=== PATIENT | male | born 1990 | race American Indian/Alaskan Native ===

== ENCOUNTER 2017-04-14 11:16 | Inpatient (IN) | payer OTHER ==
[2017-04-14 11:45] LABS: Hematocrit 44.7 % (35.5-45.6); Mean Corpuscular HGB Conc 34 % (32-34); Mean Corpuscular Hemoglobin 31 pg (28-32); Mean Corpuscular Volume 92 fl (84-94); Platelet Count 210 K/mm3 (140-440); Red Blood Count 4.85 M/mm3 (3.65-5.03); Red Cell Distribution Width 13.4 % (13.2-15.2); White Blood Count 8.2 K/mm3 (4.5-11.0)
[2017-04-14 12:11] LABS: Alanine Aminotransferase 18 units/L (7-56); Albumin 3.9 g/dL (3.9-5); Albumin/Globulin Ratio 0.8 %; Alkaline Phosphatase 42 units/L (35-129); Anion Gap 21 mmol/L; BUN/Creatinine Ratio 16; Blood Urea Nitrogen 19 mg/dL (9-20); Calcium 9.4 mg/dL (8.4-10.2); Carbon Dioxide 26 mmol/L (22-30); Chloride 93.3 mmol/L (98-107); Glucose 140 mg/dL (75-100); Lipase 19 units/L (13-60); Potassium 3.5 mmol/L (3.6-5.0); Sodium 137 mmol/L (137-145); Total Protein 8.7 g/dL (6.3-8.2)
[2017-04-14] MEDS ORDERED: NACL 0.9% 1000 ML 1,000 ML IV ONE ×2 (12:29→13:50)
[2017-04-14] MEDS ORDERED: ZOFRAN IV ONE (12:29)
[2017-04-14] MEDS ORDERED: MORPHINE IV ONE (12:30)
[2017-04-14 12:35] LABS: Basophils % (Manual) 0 % (0.0-1.8); Blastocytes % (Manual) 0 %; Eosinophils % (Manual) 0 % (0.0-4.3)
[2017-04-14] MEDS ORDERED: TYLENOL PO ONE ×2 (12:35→16:42)
--- NOTE | 2017-04-14 12:35 | Emergency Department Report ---
HPI - General Chief Complaint: Nausea/Vomiting/Diarrhea Time Seen by Provider: 04/14/17 12:22 - HPI HPI: This is a 26-year-old [place] male, with a past medical history of HIV, who presents to the emergency department with a 2-3 day history of nausea, vomiting and some periumbilical abdominal pain. He also complained of some feelings of chills but has not checked his temperature for a fever, but did present with a low-grade fever here. He tried some NyQuil for his symptoms without any relief. He has a primary care physician but cannot currently remember the name. No recent travel or sick contacts at home. He denies any dysuria, discharge, diarrhea, constipation. He says that his last CD4 count was about 1000. ED Past Medical Hx - Past Medical History Previous Medical History?: Yes Hx HIV: Yes (viral load 03/2017 960) - Surgical History Past Surgical History?: No - Social History Smoking Status: Never Smoker Substance Use Type: None ED Review of Systems ROS: Stated complaint: VOMITING Other details as noted in HPI Comment: All other systems reviewed and negative Constitutional: chills. denies: weakness Eyes: denies: eye pain, eye discharge, vision change ENT: denies: ear pain, throat pain Respiratory: denies: cough, shortness of breath, wheezing Cardiovascular: denies: chest pain, palpitations Gastrointestinal: abdominal pain, nausea, vomiting Genitourinary: denies: urgency, dysuria Musculoskeletal: denies: back pain, joint swelling, arthralgia Skin: denies: rash, lesions Neurological: denies: headache, weakness, paresthesias Physical Exam - Physical Exam Vital Signs: Vital Signs 04/14/17 04/14/17 11:23 12:10 Temperature 99.1 F 100.6 F H Pulse Rate 122 H 144 H Respiratory 16 24 Rate Blood Pressure 139/88 Blood Pressure 109/66 [Left] O2 Sat by Pulse 100 Oximetry Physical Exam: GENERAL: The patient is well-developed well-nourished. HENT: Normocephalic. Atraumatic. Patient has moist mucous membranes. EYES: Extraocular motions are intact. Pupils equal reactive to light bilaterally. NECK: Supple. Trachea is midline. CHEST/LUNGS: Clear to auscultation. There is no respiratory distress noted. HEART/CARDIOVASCULAR: Regular. There is mild to moderate tachycardia. There is no gallop rub or murmur. ABDOMEN: Abdomen is soft. There is some lower to mid abdominal tenderness to palpation. No guarding or rebound tenderness. Patient has normal bowel sounds. There is no abdominal distention. SKIN: Skin is warm and dry. NEURO: The patient is awake, alert, and oriented. The patient is cooperative. The patient has no focal neurologic deficits. The patient has normal speech. MUSCULOSKELETAL: There is no tenderness or deformity. There is no limitation range of motion. There is no evidence of acute injury. ED Course Vital Signs 04/14/17 04/14/17 11:23 12:10 Temperature 99.1 F 100.6 F H Pulse Rate 122 H 144 H Respiratory 16 24 Rate Blood Pressure 139/88 Blood Pressure 109/66 [Left] O2 Sat by Pulse 100 Oximetry ED Medical Decision Making - Lab Data Result diagrams: 04/14/17 11:30 04/14/17 11:30 - Radiology Data Radiology results: report reviewed, image reviewed interpreted by me: Abdominal x-ray shows some nonspecific nonobstructive bowel gas. CT ABDOMEN AND PELVIS WITH CONTRAST: 04/14/17 11:16:00 CLINICAL: Abdominal pain. HIV COMPARISON: None. TECHNIQUE: Volumetric acquisition and 1.25 millimeter scan reconstructions after the uneventful intravenous injection of 100 cc Omnipaque 300. Consent was obtained prior to the administration of contrast. Oral contrast was not given. FINDINGS: Abdomen: Wall thickening of the colon beginning at the mid ascending colon and descending to the splenic flexure. The wall thickening of the distal transverse and splenic flexure is less prominent since the lumen is not distended. No evidence of diverticulosis. The appendix is normal. The small bowel is normal. Numerous shotty intraperitoneal, mesenteric and retroperitoneal lymph nodes. No ascites and no pneumoperitoneum. Pelvis: Normal urinary bladder, prostate and seminal vesicles. Nonspecific rectal wall thickening as well as diffuse mild wall thickening of the sigmoid colon. Bone windows demonstrate no bone lesion. IMPRESSION:1. Wall thickening of the ascending, transverse and sigmoid colon is consistent with colitis. No signs of perforation. No abscess. 2. Mild proctitis. 3. Nonspecific shotty lymphadenopathy. 4. No urinary calculus and no cholelithiasis. - Medical Decision Making 26-year-old male presents to the emergency department with a few days of nausea , vomiting abdominal pain. He comes in tachycardic with a low-grade fever. He was given some Tylenol and eventually Toradol for his fever. He was given IV fluid resuscitation. Abdominal x-ray showed some nonspecific bowel gas but a CT was done that showed colitis throughout the large intestines. Patient was eventually given some antibiotics to cover him empirically for colitis but there is no obvious source that this is a bacterial infection. Therefore the patient is a systemic inflammatory response syndrome versus sepsis. However he' ll be admitted to the hospital either way for pain control, IV fluid resuscitation and bowel rest. He has been accepted for admission by the hospitalist, Dr. Castro - Differential Diagnosis colitis, diverticulitis, food poisoning, appendicitis Critical Care Time: No Critical care attestation.: If time is entered above; I have spent that time in minutes in the direct care of this critically ill patient, excluding procedure time. ED Disposition Clinical Impression: SIRS (systemic inflammatory response syndrome), Colitis, HIV (human immunodeficiency virus infection) Nausea & vomiting Qualifiers: Vomiting type: unspecified Vomiting Intractability: non-intractable Qualified Code(s): R11.2 - Nausea with vomiting, unspecified Abdominal pain Qualifiers: Abdominal location: periumbilical Qualified Code(s): R10.33 - Periumbilical pain Disposition: 09 OP ADMIT IP TO THIS HOSP Is pt being admited?: Yes Condition: Stable Time of Disposition: 14:00
[2017-04-14 12:36] LABS: Anisocytosis Few; Diff Status Complete; Platelet Estimate Consistent w Auto; Target Cells Few
[2017-04-14 13:03] LABS: Bacteria,Urine 1+ /HPF (Negative); Bilirubin,Urine NEG (Negative); Blood,Urine MOD (Negative); Ketones,Urine TR mg/dL (Negative); Leukocyte Esterase,Urine NEG (Negative); Mucus,Urine FEW /HPF; Nitrite,Urine NEG (Negative); Urobilinogen,Urine < 2.0 mg/dL (<2.0)
[2017-04-14] MEDS ORDERED: NACL ONE (13:22)
--- NOTE | 2017-04-14 13:39 | XRay Report ---
ABDOMEN TWO VIEWS: 04/14/17 12:29:00 CLINICAL: Abdominal pain. COMPARISON:None. FINDINGS: Supine upright views demonstrate a relatively gasless abdomen with a single prominent loop of small bowel in the upper left abdomen. No pneumoperitoneum. No mass or suspicious calcifications. No surgical clips. The bones and soft tissues are normal. IMPRESSION: A nonspecific pattern with a single prominent loop of small bowel in the left upper quadrant. No bowel obstruction or perforation.
[2017-04-14] MEDS ORDERED: TORADOL IV ONE (13:50)
--- NOTE | 2017-04-14 13:53 | Cat Scan Report ---
CT ABDOMEN AND PELVIS WITH CONTRAST: 04/14/17 11:16:00 CLINICAL: Abdominal pain. HIV COMPARISON: None. TECHNIQUE: Volumetric acquisition and 1.25 millimeter scan reconstructions after the uneventful intravenous injection of 100 cc Omnipaque 300. Consent was obtained prior to the administration of contrast. Oral contrast was not given. FINDINGS: Abdomen: Wall thickening of the colon beginning at the mid ascending colon and descending to the splenic flexure. The wall thickening of the distal transverse and splenic flexure is less prominent since the lumen is not distended. No evidence of diverticulosis. The appendix is normal. The small bowel is normal. Numerous shotty intraperitoneal, mesenteric and retroperitoneal lymph nodes. No ascites and no pneumoperitoneum. Pelvis: Normal urinary bladder, prostate and seminal vesicles. Nonspecific rectal wall thickening as well as diffuse mild wall thickening of the sigmoid colon. Bone windows demonstrate no bone lesion. IMPRESSION:1. Wall thickening of the ascending, transverse and sigmoid colon is consistent with colitis. No signs of perforation. No abscess. 2. Mild proctitis. 3. Nonspecific shotty lymphadenopathy. 4. No urinary calculus and no cholelithiasis.
[2017-04-14] MEDS ORDERED: ZOSYN/NS 4.5GM/100ML 4.5 GM/100 ML VIAL IV ONE (13:56)
[2017-04-14] MEDS: HEPARIN SUB-Q SCH (14:49)
[2017-04-14] MEDS ORDERED: MILK OF MAGNESIA PO PRN (19:01)
[2017-04-14] MEDS ORDERED: DULCOLAX PR PRN (19:01)
[2017-04-14] MEDS ORDERED: MORPHINE IV PRN (19:01)
[2017-04-14] MEDS ORDERED: TYLENOL PO PRN (19:01)
[2017-04-14] MEDS ORDERED: ZOFRAN IV PRN (19:01)
--- NOTE | 2017-04-14 19:01 | History and Physical Report ---
History of Present Illness Date of examination: 04/14/17 Date of admission: 04/14/17 14:00 Chief complaint: CC:Vomiting 2 days. History of present illness: [place]:26 y/o male with pmh of HIV comes in for severe nausea and vomiting for 2 days assoc with abd pain .Pain is epigastric 8/10 in intensity.Sharp in nature.No loose BM's. No cough or SOB Past Medical History Previous Medical History?: Yes Hx HIV: Yes (viral load 03/2017 960) Surgical History Past Surgical History?: No Social History Smoking Status: Never Smoker Substance Use Type: None Fam HX: Non contributory Review of Systems Stated complaint: VOMITING Other details as noted in HPI Comment: All other systems reviewed and negative Constitutional: chills. denies: weakness Eyes: denies: eye pain, eye discharge, vision change ENT: denies: ear pain, throat pain Respiratory: denies: cough, shortness of breath, wheezing Cardiovascular: denies: chest pain, palpitations Gastrointestinal: abdominal pain, nausea, vomiting Genitourinary: denies: urgency, dysuria Musculoskeletal: denies: back pain, joint swelling, arthralgia Skin: denies: rash, lesions Neurological: denies: headache, weakness, paresthesias Medications and Allergies Allergies Allergy/AdvReac Type Severity Reaction Status Date / Time No Known Allergies Allergy Unverified 04/14/17 11:23 Home Medications Medication Instructions Recorded Confirmed Last Taken Type Genvoya Tablet 1 PO DAILY 04/15/17 04/13/17 22:00 History 1 tab Active Meds: Active Medications Heparin Sodium (Porcine) (Heparin) 5,000 unit SUB-Q Q8HR [facility] Last Admin: 04/14/17 14:49 Dose: 5,000 unit Exam - Physical Exam Narrative exam: Lying comfortably - Constitutional Vitals: Temp Pulse Resp BP Pulse Ox 100.7 F H 119 H 15 115/54 99 04/14/17 16:43 04/14/17 13:45 04/14/17 13:45 04/14/17 13:45 04/14/17 13:45 General appearance: Present: no acute distress, mild distress, well-nourished - EENT Eyes: Present: PERRL ENT: hearing intact, clear oral mucosa - Neck Neck: Present: supple, normal ROM - Respiratory Respiratory effort: normal Respiratory: bilateral: CTA - Cardiovascular Heart rate: 78 Rhythm: regular Heart Sounds: Present: S1 & S2. Absent: rub, click - Extremities Extremities: no ischemia, pulses intact, pulses symmetrical, No edema Peripheral Pulses: within normal limits - Abdominal General gastrointestinal: Present: soft, non-tender, non-distended, normal bowel sounds Male genitourinary: Present: normal - Rectal Rectal Exam: deferred - Integumentary Integumentary: Present: clear, warm, dry - Musculoskeletal Musculoskeletal: gait normal, strength equal bilaterally - Psychiatric Psychiatric: appropriate mood/affect, intact judgment & insight - Neurologic Neurologic: CNII-XII intact, moves all extremities - Allied Health Allied health notes reviewed: nursing, case management Results - Labs CBC & Chem 7: 04/14/17 11:30 04/14/17 11:30 Labs: Laboratory Last Values WBC 8.2 K/mm3 (4.5-11.0) 04/14/17 11:30 RBC 4.85 M/mm3 (3.65-5.03) 04/14/17 11:30 Hgb 15.0 gm/dl (11.8-15.2) 04/14/17 11:30 Hct 44.7 % (35.5-45.6) 04/14/17 11:30 MCV 92 fl (84-94) 04/14/17 11:30 MCH 31 pg (28-32) 04/14/17 11:30 MCHC 34 % (32-34) 04/14/17 11:30 RDW 13.4 % (13.2-15.2) 04/14/17 11:30 Plt Count 210 K/mm3 (140-440) 04/14/17 11:30 Add Manual Diff Complete 04/14/17 11:30 Total Counted 100 04/14/17 11:30 Seg Neuts % (Manual) 80.0 % (40.0-70.0) H 04/14/17 11:30 Band Neutrophils % 6.0 % 04/14/17 11:30 Lymphocytes % (Manual) 11.0 % (13.4-35.0) L 04/14/17 11:30 Reactive Lymphs % (Man) 0 % 04/14/17 11:30 Monocytes % (Manual) 3.0 % (0.0-7.3) 04/14/17 11:30 Eosinophils % (Manual) 0 % (0.0-4.3) 04/14/17 11:30 Basophils % (Manual) 0 % (0.0-1.8) 04/14/17 11:30 Metamyelocytes % 0 % 04/14/17 11:30 Myelocytes % 0 % 04/14/17 11:30 Promyelocytes % 0 % 04/14/17 11:30 Blast Cells % 0 % 04/14/17 11:30 Nucleated RBC % Not Reportable 04/14/17 11:30 Seg Neutrophils # Man 6.6 K/mm3 (1.8-7.7) 04/14/17 11:30 Band Neutrophils # 0.5 K/mm3 04/14/17 11:30 Lymphocytes # (Manual) 0.9 K/mm3 (1.2-5.4) L 04/14/17 11:30 Abs React Lymphs (Man) 0.0 K/mm3 04/14/17 11:30 Monocytes # (Manual) 0.2 K/mm3 (0.0-0.8) 04/14/17 11:30 Eosinophils # (Manual) 0.0 K/mm3 (0.0-0.4) 04/14/17 11:30 Basophils # (Manual) 0.0 K/mm3 (0.0-0.1) 04/14/17 11:30 Metamyelocytes # 0.0 K/mm3 04/14/17 11:30 Myelocytes # 0.0 K/mm3 04/14/17 11:30 Promyelocytes # 0.0 K/mm3 04/14/17 11:30 Blast Cells # 0.0 K/mm3 04/14/17 11:30 WBC Morphology Not Reportable 04/14/17 11:30 Hypersegmented Neuts Not Reportable 04/14/17 11:30 Hyposegmented Neuts Not Reportable 04/14/17 11:30 Hypogranular Neuts Not Reportable 04/14/17 11:30 Smudge Cells Not Reportable 04/14/17 11:30 Toxic Granulation Not Reportable 04/14/17 11:30 Toxic Vacuolation Not Reportable 04/14/17 11:30 Dohle Bodies Not Reportable 04/14/17 11:30 Pelger-Huet Anomaly Not Reportable 04/14/17 11:30 Hilda Rods Not Reportable 04/14/17 11:30 Platelet Estimate Consistent w auto 04/14/17 11:30 Clumped Platelets Not Reportable 04/14/17 11:30 Plt Clumps, EDTA Not Reportable 04/14/17 11:30 Large Platelets Not Reportable 04/14/17 11:30 Giant Platelets Not Reportable 04/14/17 11:30 Platelet Satelliting Not Reportable 04/14/17 11:30 Plt Morphology Comment Not Reportable 04/14/17 11:30 RBC Morphology Not Reportable 04/14/17 11:30 Dimorphic RBCs Not Reportable 04/14/17 11:30 Polychromasia Not Reportable 04/14/17 11:30 Hypochromasia Not Reportable 04/14/17 11:30 Poikilocytosis Not Reportable 04/14/17 11:30 Anisocytosis Few 04/14/17 11:30 Microcytosis Not Reportable 04/14/17 11:30 Macrocytosis Not Reportable 04/14/17 11:30 Spherocytes Not Reportable 04/14/17 11:30 Pappenheimer Bodies Not Reportable 04/14/17 11:30 Sickle Cells Not Reportable 04/14/17 11:30 Target Cells Few 04/14/17 11:30 Tear Drop Cells Not Reportable 04/14/17 11:30 Ovalocytes Not Reportable 04/14/17 11:30 Helmet Cells Not Reportable 04/14/17 11:30 Baires-[place] Bodies Not Reportable 04/14/17 11:30 [place] Rings Not Reportable 04/14/17 11:30 Mega Cells Not Reportable 04/14/17 11:30 Bite Cells Not Reportable 04/14/17 11:30 Crenated Cell Not Reportable 04/14/17 11:30 Elliptocytes Not Reportable 04/14/17 11:30 Acanthocytes (Spur) Not Reportable 04/14/17 11:30 Rouleaux Not Reportable 04/14/17 11:30 Hemoglobin C Crystals Not Reportable 04/14/17 11:30 Schistocytes Not Reportable 04/14/17 11:30 Malaria parasites Not Reportable 04/14/17 11:30 Jose Bodies Not Reportable 04/14/17 11:30 Hem Pathologist Commnt No 04/14/17 11:30 Sodium 137 mmol/L (137-145) 04/14/17 11:30 Potassium 3.5 mmol/L (3.6-5.0) L 04/14/17 11:30 Chloride 93.3 mmol/L (98-107) L 04/14/17 11:30 Carbon Dioxide 26 mmol/L (22-30) 04/14/17 11:30 Anion Gap 21 mmol/L 04/14/17 11:30 BUN 19 mg/dL (9-20) 04/14/17 11:30 Creatinine 1.2 mg/dL (0.8-1.5) 04/14/17 11:30 Estimated GFR > 60 ml/min 04/14/17 11:30 BUN/Creatinine Ratio 16 % 04/14/17 11:30 Glucose 140 mg/dL (75-100) H 04/14/17 11:30 POC Glucose 116 (70-105) H 04/14/17 11:25 Lactic Acid 1.60 mmol/L (0.7-2.0) 04/14/17 12:55 Calcium 9.4 mg/dL (8.4-10.2) 04/14/17 11:30 Total Bilirubin 0.40 mg/dL (0.1-1.2) 04/14/17 11:30 AST 18 units/L (5-40) 04/14/17 11:30 ALT 18 units/L (7-56) 04/14/17 11:30 Alkaline Phosphatase 42 units/L (35-129) 04/14/17 11:30 Total Protein 8.7 g/dL (6.3-8.2) H 04/14/17 11:30 Albumin 3.9 g/dL (3.9-5) 04/14/17 11:30 Albumin/Globulin Ratio 0.8 % 04/14/17 11:30 Lipase 19 units/L (13-60) 04/14/17 11:30 Urine Color Yellow (Yellow) 04/14/17 Unknown Urine Turbidity Clear (Clear) 04/14/17 Unknown Urine pH 5.0 (5.0-7.0) 04/14/17 Unknown Ur Specific [place] 1.027 (1.003-1.030) 04/14/17 Unknown Urine Protein 100 mg/dl mg/dL (Negative) 04/14/17 Unknown Urine Glucose (UA) Neg mg/dL (Negative) 04/14/17 Unknown Urine Ketones Tr mg/dL (Negative) 04/14/17 Unknown Urine Blood Mod (Negative) 04/14/17 Unknown Urine Nitrite Neg (Negative) 04/14/17 Unknown Urine Bilirubin Neg (Negative) 04/14/17 Unknown Urine Urobilinogen < 2.0 mg/dL (<2.0) 04/14/17 Unknown Ur Leukocyte Esterase Neg (Negative) 04/14/17 Unknown Urine WBC (Auto) 11.0 /HPF (0.0-6.0) H 04/14/17 Unknown Urine RBC (Auto) 6.0 /HPF (0.0-6.0) 04/14/17 Unknown U Epithel Cells (Auto) < 1.0 /HPF (0-13.0) 04/14/17 Unknown Urine Bacteria (Auto) 1+ /HPF (Negative) 04/14/17 Unknown Urine Mucus Few /HPF 04/14/17 Unknown Assessment and Plan Advance Directives: Yes (Full code) VTE prophylaxis?: Chemical Plan of care discussed with patient/family: Yes - Patient Problems (1) Acute gastritis Current Visit: Yes Status: Acute Qualifiers: Gastritis type: unspecified gastritis Gastritis bleeding: without bleeding Qualified Code(s): K29.00 - Acute gastritis without bleeding Plan to address problem: Persistent voming IV fluids IV Zofran and .IV protonix EGD if necessary GI consult requested (2) Volume depletion Current Visit: Yes Status: Acute Plan to address problem: IV fluids (3) HIV (human immunodeficiency virus infection) Current Visit: Yes Status: Chronic Plan to address problem: Cont Genvoya (4) DVT prophylaxis Current Visit: Yes Status: Acute Plan to address problem: On Lovenox
[2017-04-14] MEDS: MORPHINE IV PRN (20:15)
[2017-04-14] MEDS: D5NS 1,000 ML IV SCH (20:16)
[2017-04-15] MEDS: HEPARIN SUB-Q SCH ×4 (01:21→22:17)
[2017-04-15] MEDS: PEPCID IV SCH ×3 (01:22→22:17)
[2017-04-15] MEDS: D5NS 1,000 ML IV SCH ×2 (06:37→22:14)
[2017-04-15] MEDS: MORPHINE IV PRN ×2 (06:58→10:39)
[2017-04-15] MEDS: KCL 10MEQ/100ML 10 MEQ/100 ML BAG IV SCH ×3 (07:40→21:50)
[2017-04-15] MEDS ORDERED: K-DUR PO ONE (09:28)
[2017-04-15] MEDS ORDERED: ROCEPHIN/NS 1 GM/50 ML 1 GM/50 ML BAG IV SCH (10:00)
[2017-04-15] MEDS ORDERED: Fluarix Quad 2017-2018(36 MOS+) IM ONE (12:00)
[2017-04-15] MEDS ORDERED: PNEUMOVAX 23 IM ONE (12:00)
--- NOTE | 2017-04-15 16:39 | Progress Note ---
Assessment and Plan Assessment and plan: 26 years old male with HIV on treatment with ARV presented with two-day history of abdominal pain, nausea, vomiting, watery diarrhea 1. Acute gastroenteritis Likely bacterial; r/o other etiologies (parasitic/opportunistic infections given HIV) Check stool WBC, culture, C. diff, ova&parasites CT abdomen showing wall thickening ascending, transverse and sigmoid colon and mild proctitis Chnage antibiotics to Levofloxacyn and Flagyl 2. Dehydration Secondary to volume depletion post vomiting/diarrhea IV fluids 3. HIV On ARV (Genvoya) Per his report, CD4 900 4. DVT prophylaxis History Interval history: c/o watery diarrhea Hospitalist Physical - Constitutional Vitals: Temp Pulse Resp BP Pulse Ox 100.3 F H 111 H 18 109/64 97 04/15/17 08:29 04/15/17 08:29 04/15/17 08:29 04/15/17 08:29 04/15/17 08:29 General appearance: Present: no acute distress, well-nourished - EENT Eyes: Present: PERRL, EOM intact. Absent: scleral icterus, conjunctival injection - Neck Neck: Present: supple, normal ROM. Absent: masses or JVD - Respiratory Respiratory effort: normal Respiratory: bilateral: CTA, negative: rhonchi, wheezing - Cardiovascular Rhythm: regular Heart Sounds: Present: S1 & S2. Absent: systolic murmur - Extremities Extremities: no ischemia - Abdominal General gastrointestinal: soft, non-tender, non-distended, normal bowel sounds - Psychiatric Psychiatric: cooperative - Neurologic Neurologic: CNII-XII intact, no focal deficits Results - Labs CBC & Chem 7: 04/14/17 11:30 04/14/17 11:30 Labs: Laboratory Last Values WBC 8.2 K/mm3 (4.5-11.0) 04/14/17 11:30 RBC 4.85 M/mm3 (3.65-5.03) 04/14/17 11:30 Hgb 15.0 gm/dl (11.8-15.2) 04/14/17 11:30 Hct 44.7 % (35.5-45.6) 04/14/17 11:30 MCV 92 fl (84-94) 04/14/17 11:30 MCH 31 pg (28-32) 04/14/17 11:30 MCHC 34 % (32-34) 04/14/17 11:30 RDW 13.4 % (13.2-15.2) 04/14/17 11:30 Plt Count 210 K/mm3 (140-440) 04/14/17 11:30 Add Manual Diff Complete 04/14/17 11:30 Total Counted 100 04/14/17 11:30 Seg Neuts % (Manual) 80.0 % (40.0-70.0) H 04/14/17 11:30 Band Neutrophils % 6.0 % 04/14/17 11:30 Lymphocytes % (Manual) 11.0 % (13.4-35.0) L 04/14/17 11:30 Reactive Lymphs % (Man) 0 % 04/14/17 11:30 Monocytes % (Manual) 3.0 % (0.0-7.3) 04/14/17 11:30 Eosinophils % (Manual) 0 % (0.0-4.3) 04/14/17 11:30 Basophils % (Manual) 0 % (0.0-1.8) 04/14/17 11:30 Metamyelocytes % 0 % 04/14/17 11:30 Myelocytes % 0 % 04/14/17 11:30 Promyelocytes % 0 % 04/14/17 11:30 Blast Cells % 0 % 04/14/17 11:30 Nucleated RBC % Not Reportable 04/14/17 11:30 Seg Neutrophils # Man 6.6 K/mm3 (1.8-7.7) 04/14/17 11:30 Band Neutrophils # 0.5 K/mm3 04/14/17 11:30 Lymphocytes # (Manual) 0.9 K/mm3 (1.2-5.4) L 04/14/17 11:30 Abs React Lymphs (Man) 0.0 K/mm3 04/14/17 11:30 Monocytes # (Manual) 0.2 K/mm3 (0.0-0.8) 04/14/17 11:30 Eosinophils # (Manual) 0.0 K/mm3 (0.0-0.4) 04/14/17 11:30 Basophils # (Manual) 0.0 K/mm3 (0.0-0.1) 04/14/17 11:30 Metamyelocytes # 0.0 K/mm3 04/14/17 11:30 Myelocytes # 0.0 K/mm3 04/14/17 11:30 Promyelocytes # 0.0 K/mm3 04/14/17 11:30 Blast Cells # 0.0 K/mm3 04/14/17 11:30 WBC Morphology Not Reportable 04/14/17 11:30 Hypersegmented Neuts Not Reportable 04/14/17 11:30 Hyposegmented Neuts Not Reportable 04/14/17 11:30 Hypogranular Neuts Not Reportable 04/14/17 11:30 Smudge Cells Not Reportable 04/14/17 11:30 Toxic Granulation Not Reportable 04/14/17 11:30 Toxic Vacuolation Not Reportable 04/14/17 11:30 Dohle Bodies Not Reportable 04/14/17 11:30 Pelger-Huet Anomaly Not Reportable 04/14/17 11:30 Hilda Rods Not Reportable 04/14/17 11:30 Platelet Estimate Consistent w auto 04/14/17 11:30 Clumped Platelets Not Reportable 04/14/17 11:30 Plt Clumps, EDTA Not Reportable 04/14/17 11:30 Large Platelets Not Reportable 04/14/17 11:30 Giant Platelets Not Reportable 04/14/17 11:30 Platelet Satelliting Not Reportable 04/14/17 11:30 Plt Morphology Comment Not Reportable 04/14/17 11:30 RBC Morphology Not Reportable 04/14/17 11:30 Dimorphic RBCs Not Reportable 04/14/17 11:30 Polychromasia Not Reportable 04/14/17 11:30 Hypochromasia Not Reportable 04/14/17 11:30 Poikilocytosis Not Reportable 04/14/17 11:30 Anisocytosis Few 04/14/17 11:30 Microcytosis Not Reportable 04/14/17 11:30 Macrocytosis Not Reportable 04/14/17 11:30 Spherocytes Not Reportable 04/14/17 11:30 Pappenheimer Bodies Not Reportable 04/14/17 11:30 Sickle Cells Not Reportable 04/14/17 11:30 Target Cells Few 04/14/17 11:30 Tear Drop Cells Not Reportable 04/14/17 11:30 Ovalocytes Not Reportable 04/14/17 11:30 Helmet Cells Not Reportable 04/14/17 11:30 Baires-Balm Bodies Not Reportable 04/14/17 11:30 [place] Rings Not Reportable 04/14/17 11:30 Mega Cells Not Reportable 04/14/17 11:30 Bite Cells Not Reportable 04/14/17 11:30 Crenated Cell Not Reportable 04/14/17 11:30 Elliptocytes Not Reportable 04/14/17 11:30 Acanthocytes (Spur) Not Reportable 04/14/17 11:30 Rouleaux Not Reportable 04/14/17 11:30 Hemoglobin C Crystals Not Reportable 04/14/17 11:30 Schistocytes Not Reportable 04/14/17 11:30 Malaria parasites Not Reportable 04/14/17 11:30 Jose Bodies Not Reportable 04/14/17 11:30 Hem Pathologist Commnt No 04/14/17 11:30 Sodium 137 mmol/L (137-145) 04/14/17 11:30 Potassium 3.5 mmol/L (3.6-5.0) L 04/14/17 11:30 Chloride 93.3 mmol/L (98-107) L 04/14/17 11:30 Carbon Dioxide 26 mmol/L (22-30) 04/14/17 11:30 Anion Gap 21 mmol/L 04/14/17 11:30 BUN 19 mg/dL (9-20) 04/14/17 11:30 Creatinine 1.2 mg/dL (0.8-1.5) 04/14/17 11:30 Estimated GFR > 60 ml/min 04/14/17 11:30 BUN/Creatinine Ratio 16 % 04/14/17 11:30 Glucose 140 mg/dL (75-100) H 04/14/17 11:30 POC Glucose 116 (70-105) H 04/14/17 11:25 Lactic Acid 1.60 mmol/L (0.7-2.0) 04/14/17 12:55 Calcium 9.4 mg/dL (8.4-10.2) 04/14/17 11:30 Total Bilirubin 0.40 mg/dL (0.1-1.2) 04/14/17 11:30 AST 18 units/L (5-40) 04/14/17 11:30 ALT 18 units/L (7-56) 04/14/17 11:30 Alkaline Phosphatase 42 units/L (35-129) 04/14/17 11:30 Total Protein 8.7 g/dL (6.3-8.2) H 04/14/17 11:30 Albumin 3.9 g/dL (3.9-5) 04/14/17 11:30 Albumin/Globulin Ratio 0.8 % 04/14/17 11:30 Lipase 19 units/L (13-60) 04/14/17 11:30 Urine Color Yellow (Yellow) 04/14/17 Unknown Urine Turbidity Clear (Clear) 04/14/17 Unknown Urine pH 5.0 (5.0-7.0) 04/14/17 Unknown Ur Specific [place] 1.027 (1.003-1.030) 04/14/17 Unknown Urine Protein 100 mg/dl mg/dL (Negative) 04/14/17 Unknown Urine Glucose (UA) Neg mg/dL (Negative) 04/14/17 Unknown Urine Ketones Tr mg/dL (Negative) 04/14/17 Unknown Urine Blood Mod (Negative) 04/14/17 Unknown Urine Nitrite Neg (Negative) 04/14/17 Unknown Urine Bilirubin Neg (Negative) 04/14/17 Unknown Urine Urobilinogen < 2.0 mg/dL (<2.0) 04/14/17 Unknown Ur Leukocyte Esterase Neg (Negative) 04/14/17 Unknown Urine WBC (Auto) 11.0 /HPF (0.0-6.0) H 04/14/17 Unknown Urine RBC (Auto) 6.0 /HPF (0.0-6.0) 04/14/17 Unknown U Epithel Cells (Auto) < 1.0 /HPF (0-13.0) 04/14/17 Unknown Urine Bacteria (Auto) 1+ /HPF (Negative) 04/14/17 Unknown Urine Mucus Few /HPF 04/14/17 Unknown
[2017-04-15] MEDS: FLAGYL PO SCH (18:10)
[2017-04-15] MEDS: LEVAQUIN PO SCH (18:10)
[2017-04-16] MEDS: FLAGYL PO SCH ×3 (01:39→17:40)
[2017-04-16] MEDS: HEPARIN SUB-Q SCH ×3 (06:21→22:21)
[2017-04-16] MEDS: D5NS 1,000 ML IV SCH ×2 (07:28→20:29)
[2017-04-16] MEDS: PEPCID IV SCH ×2 (10:48→22:26)
[2017-04-16 11:58] LABS: Hematocrit 38.8 % (35.5-45.6); Hemoglobin 12.9 gm/dl (11.8-15.2); Mean Corpuscular HGB Conc 33 % (32-34); Mean Corpuscular Hemoglobin 31 pg (28-32); Mean Corpuscular Volume 92 fl (84-94); Platelet Count 207 K/mm3 (140-440); Red Cell Distribution Width 13.9 % (13.2-15.2); White Blood Count 12.6 K/mm3 (4.5-11.0)
[2017-04-16 12:09] LABS: Anion Gap 15 mmol/L; BUN/Creatinine Ratio 7; Blood Urea Nitrogen 6 mg/dL (9-20); Calcium 8.6 mg/dL (8.4-10.2); Carbon Dioxide 26 mmol/L (22-30); Chloride 101.1 mmol/L (98-107); Glucose 98 mg/dL (75-100); Potassium 3.2 mmol/L (3.6-5.0); Sodium 139 mmol/L (137-145)
[2017-04-16 12:58] LABS: Basophils % (Manual) 0 % (0.0-1.8); Blastocytes % (Manual) 0 %; Eosinophils % (Manual) 0 % (0.0-4.3)
[2017-04-16 12:59] LABS: Anisocytosis 1+; Diff Status Complete; Large Platelets 1+; Platelet Estimate Cons
[2017-04-16] MEDS ORDERED: K-DUR PO ONE (17:00)
[2017-04-16] MEDS: LEVAQUIN PO SCH (17:40)
--- NOTE | 2017-04-16 18:01 | Progress Note ---
Assessment and Plan Assessment and plan: 26 years old male with HIV on treatment with ARV presented with two-day history of abdominal pain, nausea, vomiting, watery diarrhea 1. Acute gastroenteritis/colitis Likely bacterial; r/o other etiologies (parasitic/opportunistic infections given HIV) Check stool WBC, culture, C. diff, ova&parasites (many PMNs, no cripto or giardia, C. diff pending) CT abdomen showing wall thickening ascending, transverse and sigmoid colon and mild proctitis (denies anal intercourse, but admits of douching) Antibiotics changed to Levofloxacyn and Flagyl 2. Dehydration Secondary to volume depletion post vomiting/diarrhea IV fluids 3. Hypokalemia Replace and recheck 3. HIV On ARV ([place]) Per his report, CD4 >900 4. DVT prophylaxis History Interval history: no more nausea or vomiting; diarrhea improving; feeling better Hospitalist Physical - Constitutional Vitals: Temp Pulse Resp BP Pulse Ox 97.8 F 76 14 130/79 98 04/16/17 16:00 04/16/17 16:00 04/16/17 16:00 04/16/17 16:00 04/16/17 08:51 General appearance: Present: no acute distress, well-nourished - EENT Eyes: Present: PERRL, EOM intact - Neck Neck: Present: supple, normal ROM. Absent: masses or JVD - Respiratory Respiratory effort: normal Respiratory: bilateral: CTA, negative: rhonchi, wheezing - Cardiovascular Rhythm: regular Heart Sounds: Present: S1 & S2. Absent: systolic murmur - Extremities Extremities: no ischemia - Abdominal General gastrointestinal: soft, non-tender, non-distended, normal bowel sounds - Psychiatric Psychiatric: cooperative - Neurologic Neurologic: CNII-XII intact, no focal deficits Results - Labs CBC & Chem 7: 04/16/17 11:13 04/16/17 11:13 Labs: Laboratory Last Values WBC 12.6 K/mm3 (4.5-11.0) H 04/16/17 11:13 RBC 4.20 M/mm3 (3.65-5.03) 04/16/17 11:13 Hgb 12.9 gm/dl (11.8-15.2) 04/16/17 11:13 Hct 38.8 % (35.5-45.6) 04/16/17 11:13 MCV 92 fl (84-94) 04/16/17 11:13 MCH 31 pg (28-32) 04/16/17 11:13 MCHC 33 % (32-34) 04/16/17 11:13 RDW 13.9 % (13.2-15.2) 04/16/17 11:13 Plt Count 207 K/mm3 (140-440) 04/16/17 11:13 Add Manual Diff Complete 04/16/17 11:13 Total Counted 100 04/16/17 11:13 Seg Neuts % (Manual) 64.0 % (40.0-70.0) 04/16/17 11:13 Band Neutrophils % 3.0 % 04/16/17 11:13 Lymphocytes % (Manual) 26.0 % (13.4-35.0) 04/16/17 11:13 Reactive Lymphs % (Man) 0 % 04/16/17 11:13 Monocytes % (Manual) 7.0 % (0.0-7.3) 04/16/17 11:13 Eosinophils % (Manual) 0 % (0.0-4.3) 04/16/17 11:13 Basophils % (Manual) 0 % (0.0-1.8) 04/16/17 11:13 Metamyelocytes % 0 % 04/16/17 11:13 Myelocytes % 0 % 04/16/17 11:13 Promyelocytes % 0 % 04/16/17 11:13 Blast Cells % 0 % 04/16/17 11:13 Nucleated RBC % Not Reportable 04/16/17 11:13 Seg Neutrophils # Man 8.1 K/mm3 (1.8-7.7) H 04/16/17 11:13 Band Neutrophils # 0.4 K/mm3 04/16/17 11:13 Lymphocytes # (Manual) 3.3 K/mm3 (1.2-5.4) 04/16/17 11:13 Abs React Lymphs (Man) 0.0 K/mm3 04/16/17 11:13 Monocytes # (Manual) 0.9 K/mm3 (0.0-0.8) H 04/16/17 11:13 Eosinophils # (Manual) 0.0 K/mm3 (0.0-0.4) 04/16/17 11:13 Basophils # (Manual) 0.0 K/mm3 (0.0-0.1) 04/16/17 11:13 Metamyelocytes # 0.0 K/mm3 04/16/17 11:13 Myelocytes # 0.0 K/mm3 04/16/17 11:13 Promyelocytes # 0.0 K/mm3 04/16/17 11:13 Blast Cells # 0.0 K/mm3 04/16/17 11:13 WBC Morphology Not Reportable 04/16/17 11:13 Hypersegmented Neuts Not Reportable 04/16/17 11:13 Hyposegmented Neuts Not Reportable 04/16/17 11:13 Hypogranular Neuts Not Reportable 04/16/17 11:13 Smudge Cells Not Reportable 04/16/17 11:13 Toxic Granulation Not Reportable 04/16/17 11:13 Toxic Vacuolation Not Reportable 04/16/17 11:13 Dohle Bodies Not Reportable 04/16/17 11:13 Pelger-Huet Anomaly Not Reportable 04/16/17 11:13 Hilda Rods Not Reportable 04/16/17 11:13 Platelet Estimate Cons 04/16/17 11:13 Clumped Platelets Not Reportable 04/16/17 11:13 Plt Clumps, EDTA Not Reportable 04/16/17 11:13 Large Platelets 1+ 04/16/17 11:13 Giant Platelets Not Reportable 04/16/17 11:13 Platelet Satelliting Not Reportable 04/16/17 11:13 Plt Morphology Comment Not Reportable 04/16/17 11:13 RBC Morphology Not Reportable 04/16/17 11:13 Dimorphic RBCs Not Reportable 04/16/17 11:13 Polychromasia Not Reportable 04/16/17 11:13 Hypochromasia Not Reportable 04/16/17 11:13 Poikilocytosis Not Reportable 04/16/17 11:13 Anisocytosis 1+ 04/16/17 11:13 Microcytosis Not Reportable 04/16/17 11:13 Macrocytosis Not Reportable 04/16/17 11:13 Spherocytes Not Reportable 04/16/17 11:13 Pappenheimer Bodies Not Reportable 04/16/17 11:13 Sickle Cells Not Reportable 04/16/17 11:13 Target Cells Not Reportable 04/16/17 11:13 Tear Drop Cells Not Reportable 04/16/17 11:13 Ovalocytes Not Reportable 04/16/17 11:13 Helmet Cells Not Reportable 04/16/17 11:13 [place] Bodies Not Reportable 04/16/17 11:13 [place] Rings Not Reportable 04/16/17 11:13 Mega Cells Not Reportable 04/16/17 11:13 Bite Cells Not Reportable 04/16/17 11:13 Crenated Cell Not Reportable 04/16/17 11:13 Elliptocytes Not Reportable 04/16/17 11:13 Acanthocytes (Spur) Not Reportable 04/16/17 11:13 Rouleaux Not Reportable 04/16/17 11:13 Hemoglobin C Crystals Not Reportable 04/16/17 11:13 Schistocytes Not Reportable 04/16/17 11:13 Malaria parasites Not Reportable 04/16/17 11:13 Jose Bodies Not Reportable 04/16/17 11:13 Hem Pathologist Commnt No 04/16/17 11:13 Sodium 139 mmol/L (137-145) 04/16/17 11:13 Potassium 3.2 mmol/L (3.6-5.0) L 04/16/17 11:13 Chloride 101.1 mmol/L (98-107) 04/16/17 11:13 Carbon Dioxide 26 mmol/L (22-30) 04/16/17 11:13 Anion Gap 15 mmol/L 04/16/17 11:13 BUN 6 mg/dL (9-20) L 04/16/17 11:13 Creatinine 0.9 mg/dL (0.8-1.5) 04/16/17 11:13 Estimated GFR > 60 ml/min 04/16/17 11:13 BUN/Creatinine Ratio 7 % 04/16/17 11:13 Glucose 98 mg/dL (75-100) 04/16/17 11:13 POC Glucose 116 (70-105) H 04/14/17 11:25 Lactic Acid 1.60 mmol/L (0.7-2.0) 04/14/17 12:55 Calcium 8.6 mg/dL (8.4-10.2) 04/16/17 11:13 Total Bilirubin 0.40 mg/dL (0.1-1.2) 04/14/17 11:30 AST 18 units/L (5-40) 04/14/17 11:30 ALT 18 units/L (7-56) 04/14/17 11:30 Alkaline Phosphatase 42 units/L (35-129) 04/14/17 11:30 Total Protein 8.7 g/dL (6.3-8.2) H 04/14/17 11:30 Albumin 3.9 g/dL (3.9-5) 04/14/17 11:30 Albumin/Globulin Ratio 0.8 % 04/14/17 11:30 Lipase 19 units/L (13-60) 04/14/17 11:30 Urine Color Yellow (Yellow) 04/14/17 Unknown Urine Turbidity Clear (Clear) 04/14/17 Unknown Urine pH 5.0 (5.0-7.0) 04/14/17 Unknown Ur Specific [place] 1.027 (1.003-1.030) 04/14/17 Unknown Urine Protein 100 mg/dl mg/dL (Negative) 04/14/17 Unknown Urine Glucose (UA) Neg mg/dL (Negative) 04/14/17 Unknown Urine Ketones Tr mg/dL (Negative) 04/14/17 Unknown Urine Blood Mod (Negative) 04/14/17 Unknown Urine Nitrite Neg (Negative) 04/14/17 Unknown Urine Bilirubin Neg (Negative) 04/14/17 Unknown Urine Urobilinogen < 2.0 mg/dL (<2.0) 04/14/17 Unknown Ur Leukocyte Esterase Neg (Negative) 04/14/17 Unknown Urine WBC (Auto) 11.0 /HPF (0.0-6.0) H 04/14/17 Unknown Urine RBC (Auto) 6.0 /HPF (0.0-6.0) 04/14/17 Unknown U Epithel Cells (Auto) < 1.0 /HPF (0-13.0) 04/14/17 Unknown Urine Bacteria (Auto) 1+ /HPF (Negative) 04/14/17 Unknown Urine Mucus Few /HPF 04/14/17 Unknown
[2017-04-17] MEDS: FLAGYL PO SCH ×2 (00:23→11:13)
[2017-04-17] MEDS: HEPARIN SUB-Q SCH ×2 (05:59→15:13)
[2017-04-17] MEDS: D5NS 1,000 ML IV SCH (06:00)
[2017-04-17 06:39] LABS: Hematocrit 36.4 % (35.5-45.6); Hemoglobin 12.7 gm/dl (11.8-15.2); Mean Corpuscular HGB Conc 35 % (32-34); Mean Corpuscular Hemoglobin 32 pg (28-32); Mean Corpuscular Volume 91 fl (84-94); Platelet Count 193 K/mm3 (140-440); Red Blood Count 3.99 M/mm3 (3.65-5.03); Red Cell Distribution Width 14.2 % (13.2-15.2); White Blood Count 11.2 K/mm3 (4.5-11.0)
[2017-04-17 06:59] LABS: Anion Gap 16 mmol/L; BUN/Creatinine Ratio 5; Blood Urea Nitrogen 4 mg/dL (9-20); Calcium 8.4 mg/dL (8.4-10.2); Carbon Dioxide 26 mmol/L (22-30); Chloride 103.8 mmol/L (98-107); Glucose 105 mg/dL (75-100); Potassium 3.3 mmol/L (3.6-5.0); Sodium 142 mmol/L (137-145)
[2017-04-17 08:12] LABS: Blastocytes % (Manual) 0 %
[2017-04-17 08:13] LABS: Anisocytosis 1+; Diff Status Complete; Large Platelets Few; Platelet Estimate Cons
[2017-04-17 08:49] VITALS: BP 120/74
[2017-04-17] MEDS ORDERED: K-DUR PO ONE (10:00)
[2017-04-17] MEDS: PEPCID IV SCH (11:13)
--- NOTE | 2017-04-17 11:53 | Discharge Summary ---
Providers - Providers Date of Admission: 04/14/17 14:00 Date of discharge: 04/17/17 Attending physician: BALAJI ADAMS Primary care physician: ERIKA LAZARO MD Hospitalization Condition: Stable Disposition: DC-01 TO HOME OR SELFCARE Time spent for discharge: 35 min Exam - Constitutional Vitals: Temp Pulse Resp BP Pulse Ox 98 F 70 16 120/74 99 04/17/17 08:00 04/17/17 08:00 04/17/17 08:00 04/17/17 08:00 04/17/17 08:00 Plan Activity: advance as tolerated Diet: low cholesterol, low salt Follow up with: PRIMARY CARE, [Primary Care Provider] - 3-5 Days Prescriptions: Levofloxacin [Levaquin TAB] 500 mg PO Q24H #3 tablet metroNIDAZOLE [Flagyl TAB] 500 mg PO Q8H #12 tablet Polyethylene Glycol 3350 [Miralax 3350] 17 gm PO QDAY #30 packet Potassium Chloride 20 meq PO DAILY #5 tab.er.prt
[2017-04-17] MEDS ORDERED: PEPCID PO SCH (22:00)
== END 2017-04-17 15:30 | disposition home or self-care (01) | DRG 392 ==
LOC: ED 11:16 → 3A 14:00
PROVIDERS: ADMIT Internal Medicine; ATTEND Internal Medicine
PROC: 3E0234Z Introduction of Serum, Toxoid and Vaccine into Muscle, Percutaneous Approach (ICD-10-PCS; principal; 2017-04-15)
DX: K29.00 Acute gastritis without bleeding (principal); R65.10 Systemic inflammatory response syndrome (SIRS) of non-infectious origin without acute organ dysfunction; N39.0 Urinary tract infection, site not specified; K52.9 Noninfective gastroenteritis and colitis, unspecified; E87.6 Hypokalemia; E86.0 Dehydration; Z23 Encounter for immunization
CPT/HCPCS: 36415; 74020; 74177; 80048; 80053; 81001; 82140; 82962; 83690; 85007; 85025; 87040; 87045; 87177; 87493; 90686; 90732; 96374; 96375; J0696; J1644; J1885; J2270; J2405; J2543; J3480; J7030; J7042; Q9967